=== PATIENT | female | born 1970 | race Two or more races ===

== ENCOUNTER 2021-10-18 19:50 | Emergency (ER) | payer OTHER ==
[~2021-10-18] VITALS: Ht 160 cm; Wt 104.3 kg
[2021-10-18] MEDS ORDERED: METFORMIN HCL500 M3 (20:20)
[2021-10-18] MEDS ORDERED: NEURONTIN600 M1 (20:20)
== END 2021-10-18 22:42 | disposition home or self-care (01) ==
LOC: ER 19:50
DX: R60.0 Localized edema (principal); E11.9 Type 2 diabetes mellitus without complications; Z88.0 Allergy status to penicillin